=== PATIENT | male | born 1970 | race Caucasian/White ===

== ENCOUNTER 2017-04-20 08:22 | Day surgery (SDC) | payer OTHER ==
[~2017-04-20] VITALS: Ht 180.3 cm; Wt 108.0 kg
[~2017-04-20 08:22] MED LIST: PRIL20CA9 PO; PROAAER10 INH
[2017-04-20] MEDS ORDERED: NS 1,000 ML IV ONE (08:30)
[2017-04-20] MEDS ORDERED: PROPOFOL 200 MG/20 ML VIAL As Ordered ONE (10:09)
--- NOTE | 2017-04-20 10:42 | ROOR ---
Patient Name: Luis Fernando Sam Procedure Date: 04/20/2017 10:24 AM Date of : 1970 Age: 46 Room: [facility] Gender: Male Note Status: Finalized Procedure: Colonoscopy Indications: Generalized abdominal pain, Constipation Providers: Aurelio CORDOVA MD Referring MD: BLAIRE Warren Requesting Provider: Medicines: Monitored Anesthesia Care Complications: No immediate complications. Procedure: Pre-Anesthesia Assessment: - The heart rate, respiratory rate, oxygen saturations, blood pressure, adequacy of pulmonary ventilation, and response to care were monitored throughout the procedure. The Colonoscope was introduced through the anus and advanced to the terminal ileum, with identification of the appendiceal orifice and IC valve. The colonoscopy was performed without difficulty. The patient tolerated the procedure well. The quality of the bowel preparation was good. Findings: The perianal and digital rectal examinations were normal. Small Internal Hemorrhoids. The entire examined colon appeared normal on direct and retroflexion views. The terminal ileum appeared normal. Impression: - Small Internal Hemorrhoids. - The entire colon is normal on direct and retroflexion views. - The examined portion of the ileum was normal. - No specimens collected. Recommendation: - Use fiber, for example Citrucel, Fibercon, Konsyl or Metamucil. - Miralax 1 capful (17 grams) in 8 ounces of water PO daily. Aurelio Cordova MD Aurelio CORDOVA MD 04/20/2017 10:42:44 AM This report has been signed electronically. Number of Addenda: 0 Note Initiated On: 04/20/2017 10:24 AM Estimated Blood Loss: Estimated blood loss: none.
[2017-04-20 11:11] VITALS: BP 120/75
== END 2017-04-20 11:13 | disposition home or self-care (01) ==
LOC: M OPP 08:22
PROVIDERS: ATTEND Internal Medicine Gastroenterology
DX: R10.84 Generalized abdominal pain (principal); K59.00 Constipation, unspecified; K64.8 Other hemorrhoids; J45.909 Unspecified asthma, uncomplicated; R06.83 Snoring; Z79.899 Other long term (current) drug therapy

== ENCOUNTER 2023-05-28 22:35 | Emergency (ER) | payer BC, OTHER ==
[~2023-05-28] VITALS: Ht 182.9 cm; Wt 112.9 kg
[2023-05-28 23:35] LABS: BASO % 0.2 % (0.0-1.0); EOS % 0.1 % (0.0-3.0); HEMATOCRIT 51.7 % (42.0-52.0); HEMOGLOBIN 17.4 g/dl (13.5-17.5); LYMPH # 1.1 10^3/uL (1.5-5.0); LYMPH % 6.7 % (24.0-44.0); MEAN CORPUSCULAR HEMOGLOBIN 29.5 pg (27.0-33.0); MEAN CORPUSCULAR HGB CONC 33.7 g/dl (32.0-36.5); MEAN CORPUSCULAR VOLUME 87.8 fl (80.0-96.0); MONO # 0.7 10^3/uL (0.0-0.8); MONO % 4.4 % (2.0-8.0); NEUTROPHILS # 14.3 10^3/uL (1.5-8.5); NEUTROPHILS % 88.3 % (36.0-66.0); PLATELET COUNT, AUTOMATED 281 10^3/uL (150-450); RED BLOOD COUNT 5.89 10^6/uL (4.30-6.10); WHITE BLOOD COUNT 16.2 10^3/uL (4.0-10.0)
[2023-05-28] MEDS ORDERED: ONDANSETRON 4MG 2ML VIAL IV ONE (23:45)
[2023-05-28] MEDS ORDERED: NS 1,000 ML IV ONE (23:45)
[2023-05-28] MEDS ORDERED: KETOROLAC 30 MG/ML 1ML VIAL IV ONE (23:55)
[2023-05-29 00:04] LABS: CK-MB VALUE MASS < 1.0 NG/ML (<3.6); LIPASE 30 U/L (12-53)
[2023-05-29 00:06] LABS: ALBUMIN 4.6 G/DL (3.2-5.2); ALKALINE PHOSPHATASE 72 U/L (46-116); ALT/SGPT 55 U/L (7.0-40); AST/SGOT 27 U/L (<34); BILIRUBIN,DIRECT 0.4 MG/DL (<0.4); BLOOD UREA NITROGEN 11 MG/DL (9-23); CALCIUM LEVEL 9.9 MG/DL (8.5-10.1); CARBON DIOXIDE LEVEL 25 MMOL/L (20-31); CHLORIDE LEVEL 107 MMOL/L (98-107); CREATININE FOR GFR 0.83 MG/DL (0.70-1.30); GLOMERULAR FILTRATION RATE > 60.0 (>56); GLUCOSE, FASTING 139 MG/DL (60-100); POTASSIUM SERUM 3.8 MMOL/L (3.5-5.1); SODIUM LEVEL 143 MMOL/L (136-145); TOTAL PROTEIN 7.9 G/DL (5.7-8.2)
[2023-05-29 00:08] LABS: CPK CREATINE PHOSPHOKINASE 87 U/L (46-171); MB/CK RELATIVE INDEX 1.14 (< OR =4)
[2023-05-29] MEDS ORDERED: PIPERACILLIN/TAZOBACTAM SOD 4.5 GM in D5W MINI-BAG PLUS 50 ML IV ONE (02:55)
[2023-05-29] MEDS ORDERED: AMOX875T2 PO (02:55)
[2023-05-29] MEDS ORDERED: traMADol 50 MG TAB PO ONE (03:05)
[2023-05-29] MEDS ORDERED: traMADol 50 MG TAB (HOME DOSE PACK) PO ONE (03:05)
[2023-05-29 03:41] VITALS: BP 123/88; TEMP 98; O2SAT 97
== END 2023-05-29 03:35 | disposition home or self-care (01) ==
LOC: EDBD 22:35 → M ED 22:35
DX: K80.50 Calculus of bile duct without cholangitis or cholecystitis without obstruction (principal); Z79.899 Other long term (current) drug therapy
CPT/HCPCS: 76705; 80048; 80076; 82550; 82553; 83690; 84484; 85025; 93005; 96361; 96365; 96366; 96375; 99284; J1885; J2405; J2543